=== PATIENT | female | born 1990 | race Caucasian/White ===

== ENCOUNTER 2025-01-28 10:36 | Inpatient (IN) ==
[2025-01-28] MEDS ORDERED: ONDANSETRON INJ 2 MG/ML 2 ML VIAL ONE (11:44)
[2025-01-28] MEDS ORDERED: OXYTOCIN 10 UNITS/ML VIAL ONE (11:44)
[2025-01-28] MEDS ORDERED: DEXAMETHASONE SOD INJ 4 MG/ML VIAL ONE (11:44)
[2025-01-28] MEDS ORDERED: fentaNYL citrate PF 100 MCG/2 ML VIAL ONE (11:44)
[2025-01-28] MEDS ORDERED: KETOROLAC 30 MG/ML VIAL ONE (11:44)
[2025-01-28] MEDS ORDERED: PHENYLEPHRINE HCL 25 MG/250 ML NSS IV ONE (11:44)
[2025-01-28] MEDS ORDERED: MoRPHine SULFATE PF 1 MG/ML 10 ML AMP/VIAL ONE (11:44)
--- NOTE | 2025-01-28 11:48 | History & Physical Report ---
Date of Service January 28, 2025 Assessment & Plan (1) Previous delivery affecting , antepartum: Plan: Labor, will plan for section (repeat). Reviewed consent in detail, she is agreeable. Questions answered. Will proceed to OR. History of Present Illness Chief Complaint: contractions Primary Care Provider: Clayton Melvin, III, [employer] 34yo @ 38 12/17, came to L&D with contractions - she had some runs of contractions the past few days, but this morning started feeling regular contractions, these have persisted ever since. Feeling them about every 5 minutes. States she does not wish to attempt - desires repeat section. No leaking fluid, no vaginal bleeding. + movement. Previous for breech Interested in , unsure yet tho C/S SCHEDULED WITH DR. FAITH 01/30/2025 AMA Weekly NST's @ 36 weeks Hep B non immune - pcp for immunization Rubella Equiv. - MMR Allergies Allergy/AdvReac Type Severity Reaction Status Date / Time No Known Drug Allergies Allergy Verified 01/27/25 10:16 Home Medications Medication Instructions Recorded Confirmed Type vit with calcium-iron 1 tab PO DAILY 08/16/23 01/28/25 History fum-folic acid 27 mg-1 mg tablet acetaminophen 500 mg tablet 500 mg PO Q6H PRN prn 01/27/25 01/28/25 History calcium carbonate (Tums) 200 mg PO BID PRN prn 01/27/25 01/28/25 History cetirizine 10 mg tablet (Zyrtec) 10 mg PO DAILY PRN prn 01/27/25 01/28/25 History ferrous sulfate, dried 159 mg (45 159 mg PO Q2D 01/27/25 01/28/25 History mg iron) tablet,extended release (iron ER) sertraline 50 mg tablet (Zoloft) 50 mg PO QPM 01/27/25 01/28/25 History Patient History Medical History Anxiety Breast hypertrophy History of bronchitis Hx Reason for inhaler rx, rare use Hx of migraines Inattention Scoliosis "Mild" Varicella vaccination Surgical History H/O section History of postoperative nausea and vomiting with last Status post colposcopy [place] teeth removed Family History Grandmother (Paternal) Breast cancer Grandfather (Maternal) Myocardial infarction Lung cancer Heart disease Diabetes Father Kidney stones Denies family history of Ovarian cancer Prostate cancer Colorectal cancer Social History (Updated 06/27/24 @ 11:00 by Magali Lima) Smoking Status: Never smoker Second Hand Exposure: No; Do You Dip or Chew Tobacco: No; Hx Alcohol Use: No Hx Substance Use: No Preferred Language: Romanian Communication Ability: Effective Visual Impairment: No Limitations Hearing Ability: Normal Music Artist Required: No Beliefs That Will Affect Care: None marital status: marital status details: Chu Rios (34) [phone] Current Living Situation: Spouse and Family Current Living Situation Comment: - Chu; 4yo son -Floyd; 2 dogs current occupational status: employed current occupation: teacher-[employer] How many Children do You have: 1 Other Information That Helps Us Care for You: No Feels Safe at Home: Yes Safety Concerns: Feels Safe At This Time Childhood Exposure to Second-Hand Smoke: No Diet: regular caffeine: Yes during the past year weight has: remained stable Dental Care, Regularly: Yes Physical Activity Frequency: 3-4 Times per Week Seatbelt Use: always Sunscreen Use: Yes Assistive Devices: None Review of Systems All systems reviewed & are unremarkable except as noted in HPI & below Physical Exam Physical Exam: T Cat 1 [place] Q 4-5 SVE 1/80/-2, soft Constitutional: WD/WN, vitals as above Respiratory: normal respiratory effort, lungs clear to auscultation no respiratory distress Cardiovascular: Rate/Rhythm: regular rate and regular rhythm Gastrointestinal (Abdomen): Inspection/Auscultation: abdomen normal to inspection Percussion/Palpation: abdomen soft; abdomen nontender Gravid. No s/s chorio or abruption. Skin: no rashes, warm and dry Psychiatric: A+Ox3, euthymic affect Results & Data Vital Signs (Past 12 Hours) Vital Signs Temp Pulse Resp BP O2 Del Method 01/28/25 10:53 77 114/72 01/28/25 10:47 37.0 C 77 16 114/72 Room Air Coding Level of Care Code None Diagnoses Previous delivery affecting , antepartum O34.219
[2025-01-28] MEDS: LACTATED RINGER'S 1,000 ML IV SCH (11:49)
[2025-01-28] MEDS: ACETAMINOPHEN 500 MG TAB PO SCH (11:54)
[2025-01-28] MEDS: CITRIC ACID/SODIUM CITRATE 15 ML UDC PO SCH (11:56)
[2025-01-28 12:11] LABS: Hematocrit (blood only) 32.2 % (37.0-47.0); Hemoglobin 10.7 g/dl (12.0-16.0); Mean Corpuscular Hemoglobin 30.2 pg (25.0-34.0); Mean Corpuscular Hgb Conc 33.2 g/dL (32.0-36.0); Mean Platelet Volume 10.6 fL (9.4-12.4); Platelet Count 281 K/uL (130-400); RDW Coefficient of Variation 13.2 % (11.5-14.5); RDW Standard Deviation 43.5 fL (36.4-46.3); Red Blood Count 3.54 M/uL (4.20-5.40); White Blood Count 10.85 K/ul (4.8-10.8)
[2025-01-28] MEDS: ceFAZolin 2000MG 2,000 MG/15 ML SYR IV SCH (12:20)
[2025-01-28] MEDS ORDERED: LACTATED RINGER'S 1,000 ML IV SCH (12:45)
[2025-01-28] MEDS ORDERED: GLYCOPYRROLATE 0.2 MG/ML VIAL ONE (12:57)
[2025-01-28] MEDS ORDERED: NALOXONE HCL 1 MG in SODIUM CHLORIDE 0.9% 1,000 ML IV PRN (13:02)
[2025-01-28] MEDS ORDERED: ePHEDrine sulfate 50 MG/ML AMP IV PRN (13:02)
[2025-01-28] MEDS ORDERED: diphenhydrAMINE 50 MG/ML VIAL IV PRN (13:02)
[2025-01-28] MEDS ORDERED: NALOXONE HCL 0.08 MG in SYRINGE 1.8 ML IV PRN (13:02)
[2025-01-28] MEDS ORDERED: NALBUPHINE HCL INJ 10 MG/ML AMP IV PRN (13:02)
[2025-01-28] MEDS ORDERED: LACTATED RINGER'S 500 ML IV PRN (13:02)
[2025-01-28] MEDS ORDERED: NALOXONE HCL 0.4 MG/1 ML VIAL/CARP IV PRN (13:02)
[2025-01-28] MEDS ORDERED: HYDROmorphone INJ 0.5 MG/0.5 ML SYR IV PRN (13:02)
[2025-01-28] MEDS ORDERED: NO NARCOTICS OR SEDATIVES SCH (13:15)
[2025-01-28] MEDS: METHYLENE BLUE 0.5% 10 ML VIAL ONE (13:15)
[2025-01-28] MEDS ORDERED: DC INTRASPINAL MORPHINE SCH (13:15)
[2025-01-28 13:41] LABS: Base Excess Cord Arterial Bld -5.2 mEq/L (-9-1.8); Base Excess Cord Venous Blood -3.5 mEq/L (-7.7-1.9); CO2 Cord Arterial Blood 65 mmHg (39.1-73.5); Cord Venous Blood HCO3 25 mmol/L (18.4-26.8); Cord Venous Blood PCO2 62 mmHg (30.4-57.2); Cord Venous Blood PO2 < 20 mmHg (14.1-43.3); Cord Venous Blood pH 7.22 (7.20-7.44); HCO3 Cord Arterial Blood 24 mmol/L (19.7-28.5); O2 Saturation Cord Venous Bld < 60.0 % (<68); Oxygen Sat Cord Arterial Blood < 60.0 % (<60); PO2 Cord Arterial Blood < 20 mmHg (4.1-31.7); pH Cord Arterial Blood 7.18 (7.1-7.38)
--- NOTE | 2025-01-28 14:16 | Operative Report ---
Post Operative Report Pre & Post Diagnosis Operation Date: 01/28/25 11:35 Pre-Op Diagnosis: previous section spontaneous onset of labor desires repeat section Post-Op Diagnosis: same I identified the patient and participated in the time-out.: Yes Procedure Operation Date: 01/28/25 11:35 Actual Procedures p Repeat Low Transverse Section in Labor and Delivery - Traci Lucia DO Surgeon Traci Lucia DO Anchor Tack Puller C Андрей Moura DO, RN Quantitative Blood Loss (QBL) 268 Findings Consistent with Post-Op Diagnosis Viable female , Apgars 8/9. Weight pending, see nursery records. Normal appearing uterus, tubes, ovaries. Specimens placenta, cord blood, cord gas Drains syed, clear yellow. Blue after admin of methylene blue. Anesthesia Type Spinal Complications none Disposition Accompanied Patient To Recovery: Yes Disposition: L&D Indications 34yo @ 38 5/7, labor, h/o section with desire for repeat, AMA Description of Procedure The patient was seen in her labor and delivery room, risks benefits and alternatives to surgery were reviewed. Informed consent obtained. Questions were answered. She was taken to the operating room, spinal anesthesia was administered. She was then prepared and draped in the usual sterile fashion in the supine position with a leftward tilt. Timeout was confirmed. A Pfannenstiel skin incision was made with a scalpel, and carried through to the underlying layer of fascia. Fascia was nicked at midline, and this incision was extended bilaterally. The superior aspect of the fascial incision was grasped with Tanisha clamps x2, elevated off the underlying rectus abdominis muscles, and dissected sharply and bluntly. In similar fashion, the inferior aspect of the fascial incision was dissected. The rectus abdominis muscles were , and the peritoneum was entered bluntly digitally. This was extended bilaterally. The bladder flap was taken down carefully using Metzenbaum scissors. Using a new scalpel, a low transverse uterine incision was created. Clear amniotic fluid noted. The was delivered from a cephalic presentation. The head delivered, followed by shoulders and body. Spontaneous cry on the field. The cord was doubly clamped and cut, and the infant was handed off to the waiting lead network engineer. A segment was retained for cord gases. Cord blood was obtained. The placenta was delivered spontaneously intact. The uterus was exteriorized, and cleared of all clots and debris. The hysterotomy incision was reapproximated using 0 Vicryl in a running locked stitch. A second layer of the same suture was used to imbricate the incision. Posterior uterus was evaluated and normal. The uterus was returned to the abdomen, and gutters were cleared of clots and debris. Excellent hemostasis was observed. The bladder was backfilled with methylene blue-stained sterile water, found to be intact. The fascial incision was reapproximated using 0 Vicryl in a running stitch. The subcutaneous tissue was irrigated, and reapproximated using 2-0 plain gut in a running stitch. The skin was reapproximated using 4-0 Vicryl in a running subcuticular stitch. Steri-Strips and a bandage were applied. The patient tolerated the procedure well, and will be taken to the recovery area in stable and good condition. I attest to the content of the Intraoperative Record and any orders documented therein. Any exceptions are noted below. OB Procedure Charges 32651
[2025-01-28] MEDS: MoRPHine SULFATE PF 1 MG/ML 10 ML AMP/VIAL INT SPINAL ONE (14:24)
[2025-01-28] MEDS: SODIUM CHLORIDE 0.9% 1,000 ML IV SCH (14:25)
--- NOTE | 2025-01-28 14:26 | Anesthesiology Progress Note ---
Date of Service January 28, 2025 Anesthesia Post Procedure Vital Signs Vital Signs: Temp Pulse Resp BP Pulse Ox O2 Del Method 01/28/25 14:22 94 01/28/25 14:22 74 01/28/25 14:22 66 120/66 01/28/25 14:20 82 94 01/28/25 14:17 73 94 01/28/25 14:15 76 94 01/28/25 14:12 80 95 01/28/25 14:10 18 01/28/25 14:10 95 H 94 01/28/25 14:07 88 97 01/28/25 14:04 63 116/70 01/28/25 14:02 74 94 01/28/25 13:59 74 93 01/28/25 13:57 68 95 01/28/25 13:54 79 94 01/28/25 13:52 72 115/77 95 01/28/25 10:53 77 114/72 01/28/25 10:47 98.6 F 77 16 114/72 Room Air Transfer of Care Handoff Completed per policy Notes Mental Status: alert / awake / arousable and participated in evaluation Patient Amnestic to Procedure: No Nausea / Vomiting: adequately controlled Pain: adequately controlled Airway Patency, RR, SpO2: stable & adequate BP & HR: stable & adequate Hydration State: stable & adequate Neuraxial Anesthesia: was administered and sensory block is resolving Anesthetic Complications: no major complications apparent and Pt Satisfied with anesthetic care
[2025-01-28] MEDS ORDERED: CETIRIZINE HCL 10 MG TABLET PO PRN (14:44)
[2025-01-28] MEDS ORDERED: BENZOCAINE 20% SPRY 85 APPLN/85 GM CAN EXT PRN (14:44)
[2025-01-28] MEDS ORDERED: KETOROLAC 30 MG/ML VIAL IV SCH (14:44)
[2025-01-28] MEDS ORDERED: SENNA 8.6 MG TAB PO PRN (14:44)
[2025-01-28] MEDS ORDERED: MAGNESIUM HYDROXIDE SUSP 30 ML UDC PO PRN (14:44)
[2025-01-28] MEDS ORDERED: CALCIUM CARBONATE 500 MG CHEWABLE TAB PO PRN (14:44)
[2025-01-28] MEDS ORDERED: HYDROCORTISONE ACETATE 25 MG SUPP PR PRN (14:44)
[2025-01-28] MEDS: DIPHTHER/TETAN/PERTUS Vaccine (Tdap, Adol/Adult) 0.5mL IM ONE (15:15)
[2025-01-28] MEDS: OXYTOCIN 20 UNITS/LR 1,002 ML IV SCH (15:16)
[2025-01-28] MEDS ORDERED: Nursing to Pharmacy Communication SCH (15:30)
[2025-01-28] MEDS: SIMETHICONE 80 MG CHEW PO SCH (17:25)
[2025-01-28] MEDS: ONDANSETRON INJ 2 MG/ML 2 ML VIAL IV PRN (17:27)
[2025-01-28] MEDS: PROMETHAZINE 6.25 MG/50.25 ML BAG IV PRN (19:56)
--- NOTE | 2025-01-28 20:32 | Obstetrical Progress Note ---
Date of Service January 28, 2025 Assessment & Plan Admission and Anticipated Discharge Date Admission Date: January 28, 2025 Subjective Called to pt room by RN for concerns with nausea/vomiting, oozing from incision. Patient is awake, talking. Has had vomiting - tried Zofran IV x 2, no relief. Now receiving phenergan. Has sipped some liquids but no food. Had good urine output throughout the afternoon, but minimal output during the past 2 hours. 27cc QBL on under chux pads. Abdomen is soft, incision with small amount red and dark ooze when expressed. Steri strips intact. Will give IV fluids bolus, now receiving phenergan, will draw stat H/H to assess for hemorrhage. Vitals stable. Will give 1g TXA, as suspect there may some small amounts of oozy bleeding from the incision. Will re-dress incision, use sandbag for additional pressure to the wound. Results & Data Vital Signs (Past 12 Hours) Vital Signs Temp Pulse Pulse Resp BP BP Pulse Ox 01/28/25 18:15 18 97 01/28/25 17:15 16 96 01/28/25 16:20 16 96 01/28/25 16:20 01/28/25 16:20 36.9 C 74 16 112/71 96 01/28/25 15:52 65 94 01/28/25 15:50 37.0 C 74 18 130/65 94 01/28/25 15:50 70 130/65 01/28/25 15:47 69 94 01/28/25 15:42 68 94 01/28/25 15:37 69 94 01/28/25 15:32 67 96 01/28/25 15:27 66 95 01/28/25 15:22 74 94 01/28/25 15:20 36.7 C 66 16 119/74 94 01/28/25 15:20 63 119/74 01/28/25 15:17 76 95 01/28/25 15:12 77 92 01/28/25 15:07 69 94 01/28/25 15:02 65 94 01/28/25 15:01 73 130/66 91 01/28/25 14:57 67 93 01/28/25 14:52 67 95 01/28/25 14:50 37.0 C 72 18 125/66 94 01/28/25 14:50 37.0 C 72 16 125/66 94 01/28/25 14:50 67 125/66 01/28/25 14:47 66 95 01/28/25 14:42 80 95 01/28/25 14:40 18 01/28/25 14:40 58 L 121/65 01/28/25 14:37 68 96 01/28/25 14:33 80 89 L 01/28/25 14:32 79 95 01/28/25 14:30 18 01/28/25 14:27 78 95 01/28/25 14:22 94 01/28/25 14:22 74 01/28/25 14:22 66 120/66 01/28/25 14:20 82 94 01/28/25 14:17 73 94 01/28/25 14:15 76 94 01/28/25 14:12 80 95 01/28/25 14:10 18 01/28/25 14:10 95 H 94 01/28/25 14:07 88 97 01/28/25 14:04 63 116/70 01/28/25 14:02 74 94 01/28/25 14:00 36.7 C 88 18 116/70 97 01/28/25 13:59 74 93 01/28/25 13:57 68 95 01/28/25 13:54 79 94 01/28/25 13:52 72 115/77 95 01/28/25 13:51 36.7 C 74 18 115/77 95 01/28/25 10:53 77 114/72 01/28/25 10:47 37.0 C 77 16 114/72 O2 Del Method 01/28/25 18:15 01/28/25 17:15 01/28/25 16:20 01/28/25 16:20 Room Air 01/28/25 16:20 Room Air 01/28/25 15:52 01/28/25 15:50 01/28/25 15:50 01/28/25 15:47 01/28/25 15:42 01/28/25 15:37 01/28/25 15:32 01/28/25 15:27 01/28/25 15:22 01/28/25 15:20 01/28/25 15:20 01/28/25 15:17 01/28/25 15:12 01/28/25 15:07 01/28/25 15:02 01/28/25 15:01 01/28/25 14:57 01/28/25 14:52 01/28/25 14:50 01/28/25 14:50 01/28/25 14:50 01/28/25 14:47 01/28/25 14:42 01/28/25 14:40 01/28/25 14:40 01/28/25 14:37 01/28/25 14:33 01/28/25 14:32 01/28/25 14:30 01/28/25 14:27 01/28/25 14:22 01/28/25 14:22 01/28/25 14:22 01/28/25 14:20 01/28/25 14:17 01/28/25 14:15 01/28/25 14:12 01/28/25 14:10 01/28/25 14:10 01/28/25 14:07 01/28/25 14:04 01/28/25 14:02 01/28/25 14:00 01/28/25 13:59 01/28/25 13:57 01/28/25 13:54 01/28/25 13:52 01/28/25 13:51 01/28/25 10:53 01/28/25 10:47 Room Air PG Care Time/CCT Total # of Minutes Spent Total Time Spent with Patient: Total time spent is greater than 50% in coordination of care (as documented) at patient's floor/unit and/or counseling patient: Coding Level of Care Code None
[2025-01-28] MEDS: TRANEXAMIC ACID / 0.7% NACL 1,000 MG/100 ML BAG IV STA (21:27)
[2025-01-28] MEDS: ACETAMINOPHEN 325 MG TAB PO SCH (21:31)
[2025-01-28] MEDS: DOCUSATE SODIUM 100 MG CAP PO SCH (21:31)
[2025-01-28] MEDS: KETOROLAC 30 MG/ML VIAL IV SCH (21:38)
[2025-01-28] MEDS: SERTRALINE HCL 50 MG TABLET PO SCH (21:39)
[2025-01-28 22:01] LABS: Hematocrit (blood only) 33.8 % (37.0-47.0)
[2025-01-29] MEDS: LACTATED RINGER'S 1,000 ML IV SCH (03:58)
--- NOTE | 2025-01-29 05:54 | Obstetrical Progress Note ---
Date of Service January 29, 2025 Assessment & Plan (1) examination following delivery: (2) Supervision of elderly multigravida: Plan Pt is 34 yo post- day 1 s/p CS at 38w5d. complicated by AMA. Pt's vital have been stable over night and pain has been controlled with ibuprofen, tylenol and 2 dose of Toradol. Abdomen without signs of infection, however, pt has had minimal urine output despite IVF bolus x 2 and mIVF over night. - Flush syed to assess for clots - Continue mIVF and monitor vitals. - Consider imaging if pt continues with oliguria - Remove syed when appropriate - Encourage breast feeding - Pain control with tylenol, ibuprofen Toradol and hydromorphone - Maintain pressure dressing on incision for today Admission and Anticipated Discharge Date Admission Date: January 28, 2025 Supervising Physician Co-Signing Physician Notes Resident Physician Supervision Note: I interviewed and examined the patient. Discussed with Dr. Moura and agree with findings and plan as documented in the note. Any exceptions or clarifications are listed here: POD#1 - improvement in nausea/vomiting, has not vomited since I saw her last night. Pain well controlled. Some blood on bandage, however more serous fluid than blood. Urine output low - she has not had much PO fluids, will increase oral intake now that she is feeling better. RN to flush catheter, will check BMP to check creatinine. Vitals stable, feeling well. Will continue to monitor urine output today - anticipate now the N/V has resolved, should see an increase in urine output. Keeping syed in for now. Documented By: Traci Lucia, Subjective Pt is 34 yo post- day 1 s/p CS at 38w5d. complicated by AMA Ambulation:No Voiding: Syed in place with minimal urine output. Passing gas: no BM: no Diet tolerance:limited- has had chocolate candies and potato chips Lochia:scant bloody, no clots Feeding type: breast Current pain level: 3 /10 improved with ibuprofen and Toradol Overnight, pt had increased blood loss from surgical incision. Changed dressing to pressure with sand bag. Pt received LR bolus x 2 and on 125mls LR over night. This morning, pt is resting comfortably. She has not been out of bed. Denies TRISTAN, CP, SOB, N/V/D, LE pain/swelling. Review of Systems Review of Systems: As per HPI Physical Exam Constitutional: WD/WN, vitals as above Respiratory: normal respiratory effort, lungs clear to auscultation Cardiovascular: RRR, no murmur, no edema Gastrointestinal (Abdomen): Abdomen is soft, non tender, normal temperature and color Uterine fundus firm and at 1 cm below level of umbilicus Skin: Lower abdominal incision covered by bandage with minimal amount of pink disc harge. Neurologic: PERRL, EOMI, accommodation nl, no face palsy, no dysarthria Moving all 4 extremities on command Psychiatric: A+Ox3, euthymic affect Genitourinary: Syed in place. Minimal urine in bag with pink tinged color. Results & Data Vital Signs (Past 12 Hours) Vital Signs Temp Pulse Resp BP Pulse Ox O2 Del Method 01/29/25 03:53 18 95 01/29/25 03:06 37.1 C 88 18 115/72 95 Room Air 01/29/25 00:06 16 94 01/28/25 23:00 16 96 01/28/25 22:59 37.1 C 85 18 114/72 96 Room Air 01/28/25 20:08 16 94 01/28/25 20:08 37.2 C 70 16 124/77 94 Room Air 01/28/25 18:15 18 97 Resident Activity Tracking Resident Involvement: Resident Care Provided Care Provided: Adult Hospital Medicine
[2025-01-29 06:30] LABS: Basophils # (auto) 0.04 K/uL (0.00-0.20); Basophils % (auto) 0.2 %; Eosinophils # (auto) 0.01 K/uL (0.00-0.50); Eosinophils % (auto) 0.1 %; Hemoglobin 9.5 g/dl (12.0-16.0); Immature Granulocytes # (auto) 0.07 K/uL (0.01-0.20); Immature Granulocytes % (auto) 0.4 %; Lymphocytes # (auto) 1.05 K/uL (1.20-3.40); Lymphocytes % (auto) 6.4 %; Mean Corpuscular Hemoglobin 30.4 pg (25.0-34.0); Mean Corpuscular Hgb Conc 32.8 g/dL (32.0-36.0); Mean Corpuscular Volume 92.9 fL (80.0-100.0); Mean Platelet Volume 10.4 fL (9.4-12.4); Monocytes # (auto) 0.84 K/uL (0.11-0.59); Monocytes % (auto) 5.1 %; Neutrophils # (auto) 14.31 K/uL (1.40-6.50); Neutrophils % (auto) 87.8 %; Platelet Count 216 K/uL (130-400); RDW Coefficient of Variation 13.3 % (11.5-14.5); RDW Standard Deviation 44.4 fL (36.4-46.3); Red Blood Count 3.12 M/uL (4.20-5.40); White Blood Count 16.32 K/ul (4.8-10.8)
[2025-01-29] MEDS ORDERED: diphenhydrAMINE Capsule 25 MG CAP PO PRN (07:03)
[2025-01-29] MEDS ORDERED: oxyCODONE HCL IR 5 MG TAB (IMMEDIATE RELEASE) PO PRN (07:03)
[2025-01-29] MEDS ORDERED: ONDANSETRON INJ 2 MG/ML 2 ML VIAL IV PRN (07:03)
[2025-01-29] MEDS ORDERED: diphenhydrAMINE 50 MG/ML VIAL IV PRN (07:03)
[2025-01-29] MEDS ORDERED: PROMETHAZINE 12.5 MG/50.5 ML BAG IV PRN (07:03)
[2025-01-29] MEDS ORDERED: HYDROmorphone INJ 0.5 MG/0.5 ML SYR IV PRN (07:03)
[2025-01-29] MEDS: PRENATAL VITAMIN 1 TAB PO SCH (07:55)
[2025-01-29] MEDS: FERROUS SULFATE 325 MG TAB PO SCH (07:55)
[2025-01-29 08:12] LABS: Calcium 8.3 mg/dl (8.6-10.3); Creatinine Clr Calc Pharmacy 156.9 ml/min; Potassium 4.2 mmol/L (3.5-5.1)
[2025-01-29] MEDS ORDERED: KETOROLAC 30 MG/ML VIAL IV PRN (14:08)
[2025-01-29] MEDS ORDERED: IBUPROFEN 600 MG TAB PO SCH (14:15)
[2025-01-29] MEDS: IBUPROFEN 600 MG TAB PO SCH (20:16)
[2025-01-29] MEDS: bisacodyL 5 MG TABEC PO SCH (20:17)
--- NOTE | 2025-01-30 05:52 | Obstetrical Progress Note ---
Date of Service January 30, 2025 Assessment & Plan (1) examination following delivery: (2) Supervision of elderly multigravida: Plan Pt is 34 yo post- day 2 s/p CS at 38w5d. complicated by AMA. Pt had significant vomiting following and increased blood loss from abdominal incision on 01/28. Vomiting has resolved and pt has returned to eating regular OB diet. Pt also having more normal urine output. Vitals remain stable. - DC mIVF and monitor vitals. - DC syed - Encourage breast feeding - Encourage ambulation - Pain control with tylenol, ibuprofen, and hydromorphone PRN - Maintain pressure dressing on incision for today - Anticipate DC 01/31 Admission and Anticipated Discharge Date Admission Date: January 28, 2025 Supervising Physician Co-Signing Physician Notes Resident Physician Supervision Note: I was present with [Name of resident] during the history and exam. I discussed the case with the resident and agree with the findings and plan as documented in the note. Any exceptions or clarifications are listed here: [None] Documented By: Jerrod Pandey MD, FACOG Subjective Pt is 34 yo post- day 2 s/p CS at 38w5d. complicated by AMA. Pt had significant vomiting following and increased blood loss from abdominal incision on 01/28. Vomiting has resolved and pt has returned to eating regular OB diet. Pt also having more normal urine output. Vitals remain stable. Ambulation:No Voiding: Syed in place with normal urine output and color. Passing gas: yes BM: yes Diet tolerance: regular diet Lochia: minimal bloody, no clots Feeding type: breast Current pain level: 4-6 /10 improved with ibuprofen and Toradol Denies TRISTAN, CP, SOB, N/V/D, LE pain/swelling. Review of Systems Review of Systems: As per HPI Physical Exam Constitutional: WD/WN, vitals as above Respiratory: normal respiratory effort, lungs clear to auscultation Cardiovascular: RRR, no murmur, no edema Gastrointestinal (Abdomen): normal bowel sounds, soft, nontender, no hepatosplenomegaly Uterine fundus is firm and 2 cm below umbilicus Lower abdomen incision is covered by dressing. No change in discharge noted on bandage since 01/29. Neurologic: PERRL, EOMI, accommodation nl, no face palsy, no dysarthria Psychiatric: A+Ox3, euthymic affect Results & Data Vital Signs (Past 12 Hours) Vital Signs Temp Pulse Resp BP O2 Del Method 01/29/25 23:45 36.6 C 67 16 125/81 Room Air 01/29/25 20:00 36.4 C L 80 16 120/73 Room Air Resident Activity Tracking Resident Involvement: Resident Care Provided Care Provided: Adult Hospital Medicine
[2025-01-30 06:20] LABS: Hematocrit (blood only) 25.7 % (37.0-47.0); Hemoglobin 8.3 g/dl (12.0-16.0)
[2025-01-30] MEDS: MEASLES, MUMPS & RUBELLA VIRUS VACCINE (MMR) 0.5ML VIAL SQ ONE (13:03)
[2025-01-30] MEDS ORDERED: IBUPROFEN 600 MG TAB PO PRN (14:08)
[2025-01-30] MEDS ORDERED: bisacodyL 10 MG SUPP PR PRN (14:08)
[2025-01-30] MEDS: IBUPROFEN 600 MG TAB PO ONE (17:19)
[2025-01-30] MEDS: ACETAMINOPHEN 325 MG TAB PO PRN (20:03)
[2025-01-30 20:43] VITALS: O2SAT 97
[2025-01-30 23:48] VITALS: PULSE 66; RESP 16
[2025-01-31] MEDS: IBUPROFEN 600 MG TAB PO PRN (02:08)
--- NOTE | 2025-01-31 05:40 | Obstetrical Progress Note ---
Date of Service January 31, 2025 Assessment & Plan (1) examination following delivery: (2) Supervision of elderly multigravida: Plan Pt is 34 yo post- day 3 s/p CS at 38w5d. complicated by AMA. Pt's incision is covered by steri strips without discharge. Pt is voiding normally and tolerating regular diet. Vitals and hbg are stable. - Encourage ambulation - Encourage breast feeding - Pain control with tylenol, ibuprofen, and hydromorphone PRN - Anticipate DC today Admission and Anticipated Discharge Date Admission Date: January 28, 2025 Supervising Physician Co-Signing Physician Notes Resident Physician Supervision Note: I interviewed and examined the patient. Discussed with Dr. Dr. Kim and agree with findings and plan as documented in the note. Any exceptions or clarifications are listed here: Doing well. voiding without difficulty. Notes her incision is ok and appears clean and intact. Plan d/c home. Instructions given. Documented By: Marilee Bustillo MD, FACOG Subjective Pt is 34 yo post- day 3 s/p CS at 38w5d. complicated by AMA. Pt had significant vomiting following and increased blood loss from abdominal incision on 01/28. Pt is noting ability to urinate with diffi culty. She is eating regular diet without nausea or vomiting Ambulation: In room Voiding: Voiding as normal Passing gas: yes BM: yes Diet tolerance: regular diet Lochia: minimal bloody, no clots Feeding type: breast Current pain level: 1-5 /10 improved with ibuprofen or hydromorphone Denies TRISTAN, CP, SOB, N/V/D, LE pain/swelling. Review of Systems Review of Systems: As per HPI Physical Exam Constitutional: WD/WN, vitals as above Respiratory: normal respiratory effort, lungs clear to auscultation Cardiovascular: RRR, no murmur, no edema Gastrointestinal (Abdomen): normal bowel sounds, soft, nontender, no hepatosplenomegaly Uterine fundus is firm and 2-3 cm below level of umbilicus Lower abdominal incision is clean, dry, and approximated Neurologic: PERRL, EOMI, accommodation nl, no face palsy, no dysarthria Psychiatric: A+Ox3, euthymic affect Results & Data Vital Signs (Past 12 Hours) Vital Signs Temp Pulse Resp BP Pulse Ox O2 Del Method 01/30/25 23:20 36.4 C L 66 16 123/76 97 Room Air 01/30/25 20:15 Room Air 01/30/25 20:15 36.7 C 70 18 135/84 97 Room Air Resident Activity Tracking Resident Involvement: Resident Care Provided Care Provided: Adult Hospital Medicine
[2025-01-31 09:03] VITALS: BP 130/84; TEMP 97.9
--- NOTE | 2025-02-02 17:07 | Discharge Summary ---
Date of Service February 02, 2025 Admission HPI Per Admitting Provider 34yo @ 38 12/17, came to L&D with contractions - she had some runs of contractions the past few days, but this morning started feeling regular contractions, these have persisted ever since. Feeling them about every 5 minutes. States she does not wish to attempt - desires repeat section. No leaking fluid, no vaginal bleeding. + movement. Previous for breech Interested in , unsure yet tho C/S SCHEDULED WITH DR. FAITH 01/30/2025 AMA Weekly NST's @ 36 weeks Hep B non immune - pcp for immunization Rubella Equiv. - MMR Admission Exam (Per Admitting) Constitutional WD/WN, vitals as above Respiratory normal respiratory effort, lungs clear to auscultation no respiratory distress Cardiovascular Rate/Rhythm: regular rate and regular rhythm Gastrointestinal (Abdomen) Inspection/Auscultation: abdomen normal to inspection Percussion/Palpation: abdomen soft; abdomen nontender Skin no rashes, warm and dry Psychiatric A+Ox3, euthymic affect Discharge Data Consultations 01/28/25 11:45 Consult Anesthesiology Stat Procedures Performed Operation Date: 01/28/25 11:35 Actual Procedures p Section in Labor and Delivery - Traci Lucia DO Hospital Course (1) examination following delivery: (2) Supervision of elderly multigravida: Plan Pt is 34 yo post- day 3 s/p CS at 38w5d. complicated by AMA. Pt's incision is covered by steri strips without discharge. Pt is voiding normally and tolerating regular diet. Vitals and hbg are stable. - Encourage ambulation - Encourage breast feeding - Pain control with tylenol, ibuprofen, and hydromorphone PRN - Anticipate DC today Supervising Physician Co-Signing Physician Notes Resident Physician Supervision Note: I interviewed and examined the patient. Discussed with Dr. Dr. Kim and agree with findings and plan as documented in the note. Any exceptions or clarifications are listed here: Doing well. voiding without difficulty. Notes her incision is ok and appears clean and intact. Plan d/c home. Instructions given. Documented By: Marilee Bustillo MD, FACOG Coding Level of Care Code None Diagnoses examination following delivery Z39.2 Supervision of elderly multigravida O09.529
== END 2025-01-31 10:30 | disposition home or self-care (01) | DRG 788 ==
LOC: OPB 10:36 → 4S1 10:37 → 4E2 17:44
DX: O99.344 Other mental disorders complicating childbirth; O09.523 Supervision of elderly multigravida, third trimester; Z79.899 Other long term (current) drug therapy; O90.89 Other complications of the puerperium, not elsewhere classified; Z37.0 Single live birth; R11.2 Nausea with vomiting, unspecified; Z3A.38 38 weeks gestation of pregnancy; O34.211 Maternal care for low transverse scar from previous cesarean delivery; O26.893 Other specified pregnancy related conditions, third trimester; F41.9 Anxiety disorder, unspecified